=== PATIENT | male | born 1995 | race Caucasian/White ===

== ENCOUNTER 2025-09-01 20:09 | Emergency (ER) | payer BC ==
[~2025-09-01] VITALS: Ht 180.3 cm; Wt 86.4 kg
[2025-09-01 20:39] LABS: MEAN PLATELET VOLUME 9.4 FL (7.4-10.4); RED CELL DISTRIBUTION WIDTH 13.4 % (11.5-14.5)
[2025-09-01 20:44] LABS: UA COLLECTION TYPE NON-SPECIFIED
--- NOTE | 2025-09-01 20:47 | Physician Documentation ---
History of Present Illness Chief Complaint: Abdominal Pain w/vomiting Stated Complaint: BLOOD IN URINE/ABD PAIN Time Seen by MD: 20:15 Mode of Arrival: POV HPI 30-year-old male with a left lower quadrant pain associated with nausea no vomiting & gross hematuria without diarrhea yet decreased bowel movement for one week. No recent illness history, ill contacts or recent travels. Medication Reconciliation Allergies: Coded Allergies: No Known Allergies (Unverified , 09/01/25) Review of Systems All Other Systems at this time: Reviewed and Negative Constitutional: Denies: fever Gastrointestinal: Reports: abdominal pain, nausea, vomiting Physical Exam Vital Signs: RN Vital Signs have been reviewed: Yes, Temperature: 97.4, Source: Temporal, Heart Rate: 107, Respiratory Rate: 18, BP: 136/89, Pulse Oximetry: 99, Weight: 86.410 General Appearance: alert, WD/WN, moderate distress General Appearance Writhing and pain EENT: PERRL/EOMI Neck: normal inspection Respiratory: no respiratory distress Chest: no accessory muscle use Cardiovascular: normal peripheral pulses Gastrointestinal: tenderness (Lower quadrant) Back: normal inspection, no CVA tenderness Extremities: normal range of motion Psychiatric: normal mood/affect Skin: normal color Lymphatic: no adenopathy Progress Results/Orders Results/Orders Orders - DESIREE GARCIA PAC Cbc/Diff (09/01/25 20:22) BMP (09/01/25 20:22) Lipase (09/01/25 20:22) CMP (09/01/25 20:22) Ua W/Microscopic, Cult If Ind (09/01/25 20:26) Vital Signs 09/01/25 09/01/25 20:14 20:31 Temp 97.4 Pulse 107 Resp 18 18 B/P (MAP) 136/89 Pulse Ox 99 Laboratory Tests Test 09/01/25 20:26 09/01/25 20:30 Urine Specimen Description Non-specified Urine Color Red Urine Clarity Cloudy Urine pH Urine Specific [employer] Urine Protein Urine Glucose (UA) Urine Ketones Urine Occult Blood Urine Nitrite Urine Bilirubin Urine Urobilinogen Urine Leukocyte Esterase Volume Urine Centrifuged 10 ml Urine Comment See note CBC Comment Chemistry Comments Medical Decision Making Additional information obtaine: family Findings Examination history warrants laboratory screening, his CT imaging to evaluate for intra-abdominal or pelvic surgical pathologies. IV normal saline in pain management along with anti nausea provided for patient prior to imaging. Examination and history and CT imaging consistent with renal lithiasis without hydro. Pain management reassuring. No further emesis in the emergency department. Patient's safely discharged with outpatient follow up and prescriptions provided. Differential Dx:Considerations: Appendicitis, Bowel obstruction, Diverticular disease, Gastroenteritis, Inflammatory BD, Ischemic bowel, Pancreatitis, Urinary obstruction, Urinary tract infection, Urolithiasis Departure Disposition: HOME / SELF CARE / HOMELESS Impression: Primary Impression: Kidney stone Additional Impression: Hematuria Qualified Codes: R31.0 - Gross hematuria Condition: Improved Discharge Instructions: Kidney Stones, [id number] Additional Instructions: Tonight in the emergency department you were seen and evaluated for kidney stone. CT imaging is consistent for a kidney stone. Please begin outpatient medications as directed make follow up appointment with your primary care physician for consideration of Urology referral needed. Referrals: NO PRIMARY CARE PROVIDER (PCP) Prescriptions Tamsulosin Hcl* (Flomax*) 0.4 Mg Cap.sr.24h 0.4 MG PO DAILY, #10 CAP Prov: DESIREE GARCIA 09/01/25 Hydrocodone Bit/Acetaminophen 5/325 MG ([place] 5/325 MG) 5 Mg/325 Mg Tablet 1-2 TAB PO Q4-6 hours PRN for Moderate pain, #16 TAB Prov: DESIREE GARCIA 09/01/25 Prochlorperazine Maleate (Compazine) 10 Mg Tablet 1 TAB PO Q6H for 7 Days, #28 TAB 0 Refills Prov: DESIREE GARCIA 09/01/25 Ibuprofen* (Motrin*) 400 Mg Tablet 1 TAB PO Q6H PRN PRN for pain or fever for 5 Days, #20 TAB Prov: DESIREE GARCIA 09/01/25 Education Educated: Patient, Family Educated regarding: diagnosis, treatment, prognosis Signature Scribe Signature: . Attestation: . DESIREE GARCIA Sep 01, 2025 20:47
[2025-09-01] MEDS ORDERED: ondansetron/PF 4mg/2ml inj IV ONE (20:50)
[2025-09-01 20:53] LABS: SQUAMOUS EPITHELIAL CELL,UR NONE SEEN /LPF (FEW)
[2025-09-01 20:55] LABS: CREATININE 0.93 MG/DL (0.60-1.10); TOTAL CARBON DIOXIDE 28.8 MMOL/L (24-32); eCRCL 126 ML/MIN; eGFR > 90 ML/MIN
[2025-09-01] MEDS ORDERED: iohexol 300mg/ml 100ml inj. ONE (21:04)
[2025-09-01] MEDS: morphine 4 MG/ML inj SYRINge IV ONE (21:28)
--- NOTE | 2025-09-01 21:34 | RADIOLOGY REPORT ---
EXAM: CT CT ABDOMEN PELVIS HISTORY: LLQ pain TECHNIQUE: Volumetric multidetector CT images of the abdomen and pelvis were obtained after the administration of intravenous contrast. All CT scans at this facility use dose modulation, iterative reconstruction, and/or weight based dosing when appropriate to reduce radiation dose to as low as reasonably achievable. COMPARISON: None FINDINGS: [LOWER CHEST]: The partially visualized lung bases are clear without a pleural effusion. [LIVER]: Normal hepatic size without suspicious focal lesion. [GALLBLADDER AND BILIARY TREE]: No cholelithiasis. [SPLEEN]: Unremarkable. [PANCREAS]: Unremarkable. [ADRENAL GLANDS]: Unremarkable [KIDNEYS]: No hydronephrosis. Small 2-3 mm left distal ureteral stone (axial 96). Proximal left urothelial enhancement with trace inflammatory stranding compatible with inflammation. Additional 1 mm nonobstructive left renal caliceal stones. [BLADDER]: Decompressed with lateral wall thickening [REPRODUCTIVE ORGANS]: Unremarkable. [BOWEL/MESENTERY]: Stomach is normal. No CT evidence of bowel obstruction. [ASCITES]: Absent [LYMPHADENOPATHY]: No pathologically enlarged lymph nodes by CT size criteria [VASCULATURE]: No aneurysmal dilatation. [ABDOMINAL WALL]: Unremarkable. [MUSCULOSKELETAL]: No acute fracture or aggressive focal osseous lesion. IMPRESSION: 1. Small 2-3 mm left distal ureteral stone without hydronephrosis. 2. Proximal left ureteral urothelial enhancement and trace inflammatory stranding compatible with inflammation.
[2025-09-01] MEDS ORDERED: TAMS-55 PO (21:47)
[2025-09-01] MEDS ORDERED: PROC-8 PO (21:47)
[2025-09-01] MEDS ORDERED: IBUP-1984 PO (21:47)
[2025-09-01] MEDS ORDERED: HYDR-3965 PO (21:47)
[2025-09-01 22:34] VITALS: BP 128/78; PULSE 76; TEMP 98.4; O2SAT 98
[2025-09-01 22:39] VITALS: RESP 17
[2025-09-01] MEDS: ketorolac trometh 15mg/ml vial 15 MG/ML ML IV ONE (22:39)
[2025-09-01] MEDS: normal saline 1000ml 1,000 ML IV ONE (22:39)
== END 2025-09-01 22:50 | disposition home or self-care (01) ==
LOC: ER 20:10
DX: N20.0 Calculus of kidney (principal); R31.9 Hematuria, unspecified
CPT/HCPCS: 36415; 74177; 80053; 81001; 83690; 85025; 96361; 96372; 96374; 96375; 99285; J0780; J1885; J2270; J7030; Q9967

== ENCOUNTER 2025-09-03 01:08 | Emergency (ER) | payer BC ==
[~2025-09-03] VITALS: Ht 180.3 cm; Wt 81.8 kg
[~2025-09-03 01:08] MED LIST: HYDR-3965 PO; IBUP-1984 PO; PROC-8 PO; TAMS-55 PO
[2025-09-03 01:17] VITALS: BP 165/112; PULSE 66; RESP 20; TEMP 97.6; O2SAT 99
--- NOTE | 2025-09-03 01:27 | Physician Documentation ---
History of Present Illness Chief Complaint: Flank Pain Stated Complaint: MED REQUEST Time Seen by MD: 01:20 HPI Records reviewed. The gentleman was here on 09/01/2025 at 8:47 p.m. and was seen by Marcelo Brambila for evaluation for abdominal pain. At the time he complain of left lower quadrant abdominal pain associated with the nausea without vomiting, he did report hematuria. He had benign laboratory workup without evidence of kidney injury, without leukocytosis his UA was to hematuria but no evidence of UTI. Imaging was obtained at the time showing a 3 mm distal left ureteral stone without hydronephrosis. Per record review, he was also prescribed at discharge [place], ibuprofen, Flomax, and Compazine. There were sent to the pharmacy of their choice.. The gentleman returns today complaining of severe left lower quadrant abdominal pain that has a returned earlier this evening. It is once again accompanied by nausea or vomiting. It is waxing and waning, colicky, moderate to severe and sharp. No particular palliating factors. No position of comfort. Similar to the renal colic that presented him as above. Unfortunately they were not able to pick after medicines in the pharmacy. They are requesting pain management. Denies any fever or chills. There was no concern for tobacco, alcohol or illicit substances use Medication Reconciliation Allergies: Coded Allergies: No Known Allergies (Unverified , 09/01/25) Scheduled Prochlorperazine Maleate (Compazine), 1 TAB PO Q6H Tamsulosin Hcl* (Flomax*), 0.4 MG PO DAILY Scheduled PRN Hydrocodone Bit/Acetaminophen 5/325 MG ([place] 5/325 MG), 1-2 TAB PO Q4-6 hours PRN for Moderate pain Ibuprofen* (Motrin*), 1 TAB PO Q6H PRN PRN for pain or fever Review of Systems ROS 10 point review of systems was performed and unless noted above in HPI is negative for acute process/complaint. Physical Exam Vital Signs: Temperature: 97.6, Source: Temporal, Heart Rate: 66, Respiratory Rate: 20, BP: 165/112, Pulse Oximetry: 99, Weight: 81.810 Oxygen Flow Rate: 0 Physical Exam Physical examination: GENERAL: Awake, alert, oriented, GCS 15, moderate pain related distress, uncomfortable appearing, answers questions, follows commands appropriately. Accompanied by significant other. Examined in triage. HEENT: Atraumatic, normocephalic, pupils equal, extraocular muscles intact Active gross movements, sclerae anicteric, mucus membranes moist, no stridor. NECK: Midline, no JVD CARDIOVASCULAR: Good skin perfusion without evidence of pallor, mottling. PULMONARY: Nonlabored, symmetric chest rise, no audible wheezing, no accessory muscle use, no respiratory distress, speaking in full sentences. GASTROINTESTINAL: Not distended. NEUROLOGIC: Lucid with normal mental status. Normal facial symmetry. Moves all extremities symmetrically and with purpose. No truncal ataxia. Speech is fluid without evidence of dysarthria or aphasia, no focal deficits appreciated. EXTREMITIES: Acute deformities Skin: warm, dry PSYCHIATRIC: Normal affect, normal insight, normal concentration. Focused exam: [] Progress Results/Orders Results/Orders Orders - JEFFRY PHILLIPS DO Ketorolac Trometh 30mg/Ml Vial (Toradol (09/03/25 01:20) Completed Orders - JEFFRY PHILLIPS DO Prochlorperazine Inj (Compazine Inj) (09/03/25 01:20) Hydrocodone/[place] 5/325mg Tab ([place] 5/32 (09/03/25 01:20) Vital Signs 09/03/25 01:17 Temp 97.6 Pulse 66 Resp 20 B/P (MAP) 165/112 Pulse Ox 99 O2 Flow Rate 0 Medical Decision Making Additional information obtaine: old records, family Findings Facility Status: ED Holds, RME process The plan was discussed with the patient, who demonstrates clear understanding of the plan and is in agreement with the plan unless otherwise noted in the chart. All questions have been answered, all concerns were addressed unless otherwise documented. I was available throughout their ED stay for frequent reassessment and questions. Differential Diagnoses (considered and possible or likely): [Differential diagnosis considered includes most likely represents acute renal colic, unlikely acute appendicitis, acute cholecystitis, pancreatitis, gastritis, PUD, diverticulitis, mesenteric ischemia, abdominal aortic aneurysm, bowel obstruction, enteritis, colitis, fecal impaction, volvulus, IBS, inflammatory bowel disease, specific food intolerance, peritonitis, perforated viscous, malignancy, UTI, abscess, and abdominal pain NOS. History, physical exam, and workup exclude many of the more serious causes listed above. ] ??Differential Diagnoses (considered and unlikely, not requiring evaluation currently): [See above] MDM Data Please see HPI for the following: Independent Historians and external Records Review. Historian: [Patient] Independent Historians: ?[Record review, significant other] Medication Management: [Reviewed medication list] Social History and determinants: [Reviewed] Please see the body of the note for the following: Any independent interpretations of ECG, imaging studies. All vitals signs/haemodynamics, ordered tests were independently reviewed and interpreted by myself. Nursing triage complaint and vitals reviewed, additional nursing notes were reviewed as available and I agree unless otherwise noted or documented in contradiction in the chart Vital Signs: Independently reviewed Labs: Independently interpreted Imaging: Independently interpreted Old Medical Records: Independently reviewed, see HPI for relevant summary and information Pulse Oximetry: [100%] interpreted as [normal on room air] by me Additionally notably showing: [Hemodynamically stable] Tests considered but not ordered include: [Hematologic workup and imaging has been considered but does not appear to be necessary given clinical nature of diagnosis. I did not believe he requires repeat imaging or repeat labs at this time.] Social Determinants of Health Impact: Patient was evaluated in [facility], [facility] [place] healthcare due to below par ratio of patient to medical providers. [] Comorbid Conditions Impacting Present Evaluation and Care/Treatment: [Known 3 mm kidney stone in the distal left ureter] Management Discussions with other Healthcare Providers: [None] Treatment and Disposition Medication Management (Given or considered): [Multimodal pain management]. See EMR for details Consideration for Hospitalization/Escalation/Deescalation of Care: Admission for observation has been considered, [however the patient is able to tolerate p.o., their symptoms are controlled, they are able to rely on oral medications, and their chief complaint/diagnosis can be managed on outpatient basis.] ?ED Course:?[Date: Sep 03, 2025 Time: 01:51 the pain is markedly improved. ] ?Shared decision making:?[Patient is hemodynamically stable for discharge home with follow with their primary care provider. [ ] Specific and cautious return precautions provided and discussed with full understanding. Any incidental findings were also discussed and follow up recommendations given. [] All questions answered. Patient/family were able to verbalize back return precautions. Patient/family agree to plan. Copies of imaging and laboratory studies were provided.] Code status:?FULL Please see the full Electronic Medical Record for full details of nursing documentation, medications list, other records of complete past medical history and conditions, vital signs, laboratory studies, and any radiologic study interp retations by radiologists. Portions of this note were completed using [employer] dictation software and as a result there may exist minor errors in spelling. I have reviewed elements of past family and social history and agree as included in note. Differential Dx:Considerations: Other (See the body of main note) Departure Disposition: 01 HOME / SELF CARE / HOMELESS Impression: Primary Impression: Renal colic Condition: Improved Discharge Instructions: Renal Colic Referrals: NO PRIMARY CARE PROVIDER (PCP) Education Educated: Patient, Family Educated regarding: diagnosis, treatment, prognosis, need for follow up (They already has a medications prescribed for them for their pain, they need to pick it up at the pharmacy) Signature Scribe Signature: No scribe Attestation: Date: Sep 03, 2025 Time: 01:26 This note accurately reflects clinical decisions, work performed by myself, Jeffry Phillips, JEFFRY WEEKS DO Sep 03, 2025 01:26
[2025-09-03] MEDS: HYDROcodone/acetaminophen 5mg/325mg tablet PO ONE (01:28)
[2025-09-03] MEDS: ketorolac trometh 30MG/ML vial 30 MG/ML VIAL IM ONE (01:38)
== END 2025-09-03 01:52 | disposition home or self-care (01) ==
LOC: ER 01:09
DX: N23 Unspecified renal colic (principal)
CPT/HCPCS: 96372; 99284; J0780; J1885